=== PATIENT | female | born 1970 ===

== ENCOUNTER 2024-12-23 10:02 | Outpatient (AMB) | payer OTHER, SELFPAY ==
--- NOTE | 2024-12-23 10:05 | A.OFFPC_ITS ---
Vital Signs 12/23/24 10:14 Height 5 ft 3 in Weight 202 lb 2 oz BMI 35.8 BP 118/70 Blood Pressure Location Rt brachial Position Sitting Respiration 12 Pulse 76 Pulse Source Pulse Oximeter Temp 97.2 F Temp Source Oral Pulse Oximetry (%) 96 Oxygen Delivery Method Room Air Intake Visit Reasons: Est. 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: No Allergies No Known Allergies Allergy (Verified 12/23/24 10:39) Medication List - Last Reconciled 12/23/24 by MAURICIO Rdz No Known Home Meds Tobacco use date assessed: 12/23/24 Dental Screening Dental Screen Date: 12/23/24 Did you have a dental visit in the last 12 months?: No Did you have a dental problem in the last 6 months where you did not have access to dental care?: No Was dental information given to patient?: Patient has dentist HPI HPI Comments History of Present Illness Details 54 y/o Bruneian F, Bermudian speaking, w ith MDD, ILEANA, HLD, HTN, Health Maintenance: Colon referred today Mammo ordered today DEXA orderd today PAP referred today Tdap admin today Specialists: History of Present Illness - The patient is a 54-year-old female pr esenting with the need to establish care & for CPE - Relocated from [facility] no r ecords. Dtr here and helps w/language barrier - History includes anxiety, depression, hypertension, hyperlipidemia, and asthma. - Previously on aspirin for cardiac heal th, per reports - Reports bilateral knee pain, right mor e than left, causing walking difficulty, assoc w swelling - BMI >35 interested in bariatrics - Attempting dietary and exercise interv entions with limited success. - Will be starting [employer], needs tda p and titers. - Asthma controlled w/o meds - BP controlled w/o meds - Hairloss of scalp - Bilat ear pain and sore throat started a few days ago. - Right hand pain and swelling, comes an d goes Review of Systems - Musculoskeletal: Reports knee pain and difficulty walking, right knee more affected. - Endocrine: Reports previous evaluation of thyroid function. - Nutritional/Weight: Reports obesity co ncerns, BMI > 35. - Psychiatric: Positive history of anxie ty and depression; interest in mental health counseling. Physical Exam General: Well developed, well nourished, in no acute distress. Appears stated age. Head: Normocephalic, atraumatic. Eyes: Pupils are equal, round and reactive to light and accommodation. Conjunctivae are clear. Vision grossly normal. Ears: TMs clear AU, EACS WNL. Mild congestion bilat TM Nose: scant clear drainage turbinates pale and edematous, no sinus TTP Pharynx: Mild PND Neck: Supple, no adenopathy or thyromegaly. Breast: Edu on SBE Lungs: Clear to auscultation bilaterally. No rales, rhonchi or wheeze noted. Good air flow in all camacho. Heart: Regular rate and rhythm. No murmurs, click, rubs or gallops are noted. Abdomen: Bowel sounds present in all quadrants. The abdomen is soft, nontender, with no masses or organomegaly noted. No hernias are noted. : Deferred. Reviewed recommendations for routine PILATES COORDINATOR Pulses: Peripheral pulses are equal and palpable bilaterally. Extremities: No clubbing, cyanosis nor edema is noted. LROM R knee d/t pain, + crepitus bilat, antalgic gait favoring R knee. No redness or warmth to joint. R hand normal today. Neurologic: Gait and station normal. Cranial Nerves 2-12 intact. Motor strength grossly symmetrical and intact. No sensory loss. Balance normal. Skin: No rashes, ulcers, or lesions noted. Turgor is good. Skin color is good. Hair and nails are without abnormalities. Alopecia of scalp. Psych: Normal eye contact, affect and mood appropriate, and normal interactions. Results Pending Discussion Notes Discussed at length the patient?s multiple medical issues, including anxiety, depression, hypertension, hyperlipidemia, asthma, and obesity. I explained the importance of routine health maintenance, including annual mammograms and blood work assessment. We discussed referrals to orthopedics for knee pain and dermatology for concerns about hair loss. Reviewed the necessity of vaccinations, particularly the tetanus immunization, and explained the procedure of applying titers for various conditions. Addressed weight management concerns and possible referral to a weight management clinic. Informed the patient about the possibility of establishing a plan for mental health support with a counselor. Stressed the importance of follow-up visits and provided guidance on how to enroll in our patient portal for further communication and record- keeping. Patient was given time to ask questions. All questions were answered to their satisfaction. Assessment and Plan 1. Generalized Anxiety Disorder and Catarina r Depressive Disorder - Referral for counseling services. 2. Essential Hypertension - Monitor 3. Hyperlipidemia - Evaluate lipid panel results. 4. Asthma - Assess medication needs. 5. Obesity - Referral to weight management clinic. 6. Knee Pain, bilat - Orthopedics referral. 7. Preventive Health - Tetanus shot administered and discusse d screenings. HM referrals/orders placed today. Mulitlple referrals placed today per request. Has [employer] health form, asked this be sent via the portal for me to complete once labs are back. Patient Instructions - Please make sure to get your tetanus s hot today. - Follow up with the orthopedic speciali st for your knee pain. - Contact a counselor for mental health support as discussed. - Remember to get your routine lab work done today. - Maintain your exercise and dietary eff orts; we'll support your weight management journey. - Enroll in our patient portal to stay u pdated on your health information. - RTO 1 year CPE , sooner PRN Consent Patient was informed and verbally consented to the use of an ambient scribe for clinic note documentation during this visit. An additional 50 minutes was spent addressing the problem(s) noted at todays visit. This includes time spent before the visit reviewing the chart, time spent during the visit, and time spent after the visit on documentation reviewing laboratory results, diagnostic imaging, medications, performing a medically necessary evaluation, counseling on diagnoses, care coordination, ordering appropriate tests, ordering appropriate medications, review of tests performed by other providers, reporting test results with the patient, communication with other healthcare providers. [facility] Medical History (Updated 12/23/24 @ 11:09 by Milagros Bazzi, [facility]) Allergic Anxiety and depression Arthritis Asthma Edema Headache High cholesterol HTN (hypertension) Hx of mammogram (~2022) IBS (irritable bowel syndrome) Memory loss No pertinent family history Sinusitis Swelling Thyroid disorder Surgical History (Updated 12/23/24 @ 10:21 by Miguelito Silva MA) No pertinent past surgical history Social History (Updated 12/23/24 @ 10:18 by Miguelito Silva MA) Household Members: Children Both parents involved: No Caregiver staying overnight: No Housing: House Are you a primary career resource specialist to a significant other at home: No Do you presently have visiting nurse or other home services: No 75 years or older and lives alone: No Alcohol intake: current Alcohol intake frequency: a few times a month Patient Tobacco Use Status: Never used Tobacco e-Cigarette/Vaping Use: Never Used Second Hand Smoke Exposure: No Current occupational status: unemployed Cognitive needs: Yes Hearing needs: No Vision needs: Yes Questionnaire PHQ-9 Over the last 2 weeks, how often have you been bothered by any of the following problems? 1. Little interest or pleasure in doing things: several days 2. Feeling down, depressed, or hopeless: several days 3. Trouble falling or staying asleep, or sleeping too much: more than half the days 4. Feeling tired or having little energy: more than half the days 5. Poor appetite or overeating: nearly every day 6. Feeling bad about yourself - or that you are a failure or have let yourself or your family down: more than half the days 7. Trouble concentrating on things, such as reading the newspaper or watching television: more than half the days 8. Moving or speaking so slowly that other people could have noticed. Or the opposite - being so fidgety or restless that you have been moving around a lot more than usual: more than half the days 9. Thoughts that you would be better off or of hurting yourself in some way: not at all Total score: 15 Depression Screening Interpretation: Positive Depression Screening Follow-up: Existing condition and Community Mental Health Worker F/U Depression Screening Done: Yes 69089 - PHQ-9 Billing: Yes Source: Developed by Drs. Yordan Salguero, Layla Haskins, Jose Luis Kapadia and colleagues, with an educational amara from [employer]. Thrive Questionnaire Date Thrive assessed: 12/23/24 I am a: Patient What is your living situation today?: I choose not to answer this question Within the past 12 months, did the food you bought not last and you didn't have the money to get more?: I choose not to answer this question Within the past 12 months, did you worry whether your food would run out before you got money to buy more?: I choose not to answer this question Do you have trouble paying for medicines?: Yes Do you have trouble getting transportation to medical appointments?: Yes Do you have trouble paying your heating and electricity bill?: I choose not to answer this question Do you have trouble taking care of your child, family member or friend?: I choose not to answer this question Do you have trouble with day-to-day activities such as bathing, preparing meals, shopping, managing finances, etc.?: I choose not to answer this question Are you currently unemployed and looking for a job?: Yes Are you interested in more education?: I choose not to answer this question Currently or been in a relationship where the following occur: I choose not to answer THRIVE Score: 1 AUDIT C Alcohol Use Questionnaire (AUDIT-C) 1. How often do you have a drink containing alcohol?: Monthly or less 2. How many drinks containing alcohol do you have on a typical day when you are drinking?: 1 or 2 3. How often do you have six or more drinks on one occasion?: Never Total Score: 1 Score Reviewed/Action Taken: Yes ILEANA-7 AMB Questionnaire ILEANA-7 Date ILEANA - 7 assessed: 12/23/24 Feeling nervous, anxious, or on edge: 0 = Not at all Not being able to stop or control worryin = Not at all Worrying too much about different things: 0 = Not at all Trouble relaxin = Not at all Being so restless that it is hard to sit still: 0 = Not at all Becoming easily annoyed or irritable: 0 = Not at all Feeling afraid as if something awful might happen: 0 = Not at all Total ILEANA-7 score (0-4 normal; 5-9 mild; 10-14 moderate; 15-21 severe): 0 Source: Developed by Drs. Yordan Salguero, Layla Haskins, Jose Luis Kapadia and colleagues, with an educational amara from [employer]. ILEANA-7 Assessment Billing ILEANA-7 Assessment Tool: ILEANA-7 Assessment 44044 ACT Questionnaire In the past 4 weeks, how much of the time did your asthma keep you from getting as much done at work, school or at home?: None of the time During the past 4 weeks, how often have you had shortness of breath?: Not at all During the past 4 weeks, how often did your asthma symptoms wake you up at night or earlier than usual in the morning?: Not at all During the past 4 weeks, how often have you had to use your rescue inhaler or nebulizer medication?: Not at all How would you rate your asthma control during the past 4 weeks?: Completely controlled ACT Interpretation: Negative Score: 25 Physical exam (Primary Care) Vital Signs: Last Vital Signs Temp 97.2 F 12/23/24 10:14 Pulse 76 12/23/24 10:14 Resp 12 12/23/24 10:14 BP 118/70 12/23/24 10:14 Pulse Ox 96 12/23/24 10:14 Oxygen Delivery Method Room Air 12/23/24 10:14 BMI result Body Mass Index 35.8 BMI Assessment/Plan discussion: High BMI High, discussed plan: lifestyle Tobacco/Smoking Status: Tobacco use Status Tobacco use date assessed 12/23/24 12/23/24 10:09 Patient Tobacco Use Status Never used Tobacco 12/23/24 10:18 e-Cigarette/Vaping Use Never Used 12/23/24 10:18 PHQ-9: PHQ-9 Score PHQ-9: Total score 15 12/23/24 10:39 Depression Screening Interpretation: Positive Depression Screening Follow-up: Existing condition and Community Mental Health Worker F/U Thrive Assessment: Date of Thrive Assessment Date Thrive assessed 12/23/24 12/23/24 10:09 Currently or been in a relationship where the following occur: I choose not to answer Immunizations Boostrix Tdap 2.5 Lf unit-8 mcg-5 Lf/0.5 mL intramuscular syringe Performing Provider: GIFTY Rdz Performing Location: [facility] Administered by: Miguelito Silva MA on 12/23/24 11:07 Dose Route Admin Location Dispensed Lot Number Expiration Date [facility] Medical Coding Auditor 0.5 mL IM Right Deltoid 0.5 mL [id number] 07/11/26 [id number] [employer] Total Dispensed Waste 0.5 mL 0 % VIS Given Date VIS Provided VIS Publication Date 12/23/24 Single Vaccine 20 Eligibility Eligibility Date Funding Source Not [facility] Eligible 12/23/24 Private Coding Level of Care Code New Pt Level 5 (28080) New Pt Prev Care 40-64y(92478) Diagnoses Encounter to establish care with new provider Z76.89 Obesity (BMI 30-39.9) E66.9 Mild episode of recurrent major depressive disorder F33.0 Major depression episode severity: mild ILEANA (generalized anxiety disorder) F41.1 Pain and swelling of knee, unspecified laterality M25.569; M25.469 Laterality: unspecified laterality Menopause Z78.0 Blurry vision, bilateral H53.8 Immunity status testing Z01.84 Need for Tdap vaccination Z23 Intermittent pain and swelling of hand M79.643; M79.89 Alopecia L65.9 Environmental allergies Z91.09 Primary hypertension I10 Hypertension type: primary hypertension High cholesterol E78.00 Laboratory exam ordered as part of routine general medical examination Z00.00 Mild intermittent asthma without complication J45.20 Asthma severity: mild Asthma persistence: intermittent Asthma complication type: uncomplicated Encounter for general adult medical examination without abnormal findings Z00.00 Additional Codes ILEANA-7 Assessment Billing - ILEANA-7 Assessment Tool: ILEANA-7 Assessment 91243 ([id number]) PHQ-9 - 05073 - PHQ-9 Billing: Yes ([id number]) Asthma Control Questionnaire - ACT Interpretation: Negative ([id number]) Assessment & Plan Assessment & Plan (1) Encounter to establish care with new provider: Code(s): Z76.89 - Persons encountering health services in other specified circumstances (2) Obesity (BMI 30-39.9): Comment: [facility]MT REFERRAL Code(s): E66.9 - Obesity, unspecified Category: Medical (3) MDD (major depressive disorder), recurrent episode: Comment: [facility] REFERRAL FOR COUNSELING Code(s): F33.9 - Major depressive disorder, recurrent, unspecified Category: Medical Qualifiers: Major depression episode severity: mild Qualified Code(s): F33.0 - Major depressive disorder, recurrent, mild (4) ILEANA (generalized anxiety disorder): Code(s): F41.1 - Generalized anxiety disorder Category: Medical (5) Pain and swelling of knee: Comment: BILAT [facility] RFERRAL Code(s): M25.569 - Pain in unspecified knee; M25.469 - Effusion, unspecified knee Category: Medical Qualifiers: Laterality: unspecified laterality Qualified Code(s): M25.569 - Pain in unspecified knee; M25.469 - Effusion, unspecified knee (6) Menopause: Comment: DEXA ORDERED Code(s): Z78.0 - Asymptomatic menopausal state Category: Medical (7) Blurry vision, bilateral: Comment: [facility] RE[facility] Code(s): H53.8 - Other visual disturbances Category: Medical (8) Immunity status testing: Code(s): Z01.84 - Encounter for antibody response examination Category: Medical (9) Need for Tdap vaccination: Code(s): Z23 - Encounter for immunization Category: Medical (10) Intermittent pain and swelling of hand: Comment: RIGHT HAND [facility] HAND REFERRAL Code(s): M79.643 - Pain in unspecified hand; M79.89 - Other specified soft tissue disorders Category: Medical (11) Alopecia: Comment: DERM REFERRAL Code(s): L65.9 - Nonscarring hair loss, unspecified Category: Medical (12) Environmental allergies: Comment: SIRENA SMITH Code(s): Z91.09 - Other allergy status, other than to drugs and biological substances Category: Medical (13) HTN (hypertension): Code(s): I10 - Essential (primary) hypertension Category: Medical Qualifiers: Hypertension type: primary hypertension Qualified Code(s): I10 - Essential (primary) hypertension (14) High cholesterol: Code(s): E78.00 - Pure hypercholesterolemia, unspecified Category: Medical (15) Laboratory exam ordered as part of routine general medical examination: Code(s): Z00.00 - Encounter for general adult medical examination without abnormal findings Category: Medical (16) Asthma: Code(s): J45.909 - Unspecified asthma, uncomplicated Category: Medical Qualifiers: Asthma severity: mild Asthma persistence: intermittent Asthma complication type: uncomplicated Qualified Code(s): J45.20 - Mild intermittent asthma, uncomplicated (17) Encounter for general adult medical examination without abnormal findings: Onset Date: ~12/23/24 Code(s): Z00.00 - Encounter for general adult medical examination without abnormal findings Category: Medical Plan . Orders: Orders Comprehensive Met. Panel Today Z00.00 - Encounter for general adult medical examination without abnormal findings Complete Blood Count no Diff Today Z00.00 - Encounter for general adult medical examination without abnormal findings Hemoglobin A1c Today Z00.00 - Encounter for general adult medical examination without abnormal findings TSH reflex Free T4 Today Z00.00 - Encounter for general adult medical examination without abnormal findings Vitamin B12 and Folate Today Z00.00 - Encounter for general adult medical examination without abnormal findings Hepatitis B Surface Antibody Today Z01.84 - Encounter for antibody response examination T Spot TB Today Z01.84 - Encounter for antibody response examination, Z11.1 - Encounter for screening for respiratory tuberculosis MMR IgG Measles Mumps Rubella Today Z01.84 - Encounter for antibody response examination Varicella IgG Antibody Today Z01.84 - Encounter for antibody response examination Lipid Panel Today Z00.00 - Encounter for general adult medical examination without abnormal findings Microalbumin, Random (w Creat) Today Z00.00 - Encounter for general adult medical examination without abnormal findings Vitamin D 25-OH Total Today Z00.00 - Encounter for general adult medical examination without abnormal findings MM tomosynthesis screening BI Today Z12.31 - Encounter for screening mammogram for malignant neoplasm of breast XR DEXA axial skeleton Today Z13.820 - Encounter for screening for osteoporosis, Z78.0 - Asymptomatic menopausal state TDaP Immunization Today Z23 - Encounter for immunization Referrals WARD SUPERVISOR Referral Z12.4 - Encounter for screening for malignant neoplasm of cervix Hand Surgery Referral M79.643 - Pain in unspecified hand, M79.89 - Other specified soft tissue disorders Orthopedics Referral M25.469 - Effusion, unspecified knee, M25.569 - Pain in unspecified knee Gastroenterology Referral Z12.11 - Encounter for screening for malignant neoplasm of colon Ophthalmology Referral H53.8 - Other visual disturbances Medical Weight Management Referral E66.9 - Obesity, unspecified Nurse Navigator Referral F41.1 - Generalized anxiety disorder Dermatology Referral L65.9 - Nonscarring hair loss, unspecified Medications: New cetirizine (Zyrtec) 10 mg PO DAILY PRN 90 caps 2RF allergy symptoms fluticasone propionate 50 mcg/actuation administer into each nostril 1 spray intranasal BID 16 grams 12RF Patient Instructions: Walk-In Care (Urgent Care): We Make it Easy Walk-in for urgent medical issues such as: ? Seasonal Allergies ? Insect Bites ? Cough ? Diarrhea ? Acute Asthma Attacks ? Back, Knee or Joint Pain ? Ear Infection ? Fever without a Rash ? Headaches ? Nausea ? [place] [facility], Rash or Skin Irritation ? Sore Throat ? Sports Physicals ? Vomiting Most insurances are accepted. Patients do not need to be part of the [facility] to seek care at the walk-in clinic. Locations [address], [place] [address] ? [phone] [facility] in [place] provides services to ages 18 and over. Open Sunday-Sunday: 8 a.m. to 5 p.m. and Sunday: 9 a.m. to 3 p.m.* *Hours may vary due to staffing availability. To confirm Walk-In Care hours in [place], please call [phone]. [address] [place] [address] ? [phone] [facility] in [place] provides services to ages 12 and over. Open Sunday-Sunday: 8 a.m. to 5 p.m. Hours may vary due to staffing availability. To confirm Walk-In Care hours in [place], please call [phone]. LABORATORY SERVICES: [facility] ? Primary Location [address] [place] [address] Sunday through Sunday 6:00 AM ? 5:00 PM Sunday 7:00 AM ? 11:00 AM* [phone] The [facility] is centrally located near the front entrance of the [facility] for easy outpatient access. Convenient parking is provided for outpatients. *Hours may vary due to staffing availability. To confirm Laboratory hours for any location, please call [phone]. Offsite Location For your convenience, we offer offsite laboratory draw stations at the following locations: [address] [place] [address] ? [address], [address] Sunday through Sunday 7:30 AM ? 1:00 PM* [phone] *Hours may vary due to staffing availability. To confirm Laboratory hours for any location, please call [phone]. [place] ? [address] Sunday through Sunday 6:00 AM ? 3:30 PM* Sunday 6:30 AM ? 3 PM* [phone] *Hours may vary due to staffing availability. To confirm Laboratory hours for any location, please call [phone] [place] [address] Sunday through Sunday 7:30 AM ? 4:00 PM* [phone] *Hours may vary due to staffing availability. To confirm Laboratory hours for any location, please call [phone]. [facility] Sunday through 9:00 AM ? 4:00 PM* *Hours may vary due to staffing availability. To confirm Laboratory hours for any location, please call [phone]. Appointments are not necessary. Walk-ins are welcome. Like all the departments throughout the [facility], our Lab undergoes frequent reviews to ensure the quality and accuracy of test results, and our staff takes special pride in its status as a nationally accredited facility. Patient Portal: ONE PATIENT. ONE RECORD. BETTER CARE. [facility] has a fully integrated, cutting- edge mobile electronic health information system that has revolutionized the way we care for our patients and manage our organization. This system improves communication and coordination enabling us to provide safe, higher-quality care, and an overall positive experience for staff and patients. Our first priority, as always, is to deliver the highest quality care possible. The system is running in the background supporting that priority. This portal is for all [facility] services and practices. If you are experiencing any technical difficulties with enrolling or logging into the Patient Portal please complete the [facility] Patient Portal Technical Support Form. [facility] now offers a new secure on-line interactive tool for patients to review their health information ? ?Patient Portal. This interactive web portal will enable patients and their families to take an active role in their care by providing easy, secure access to their health information via the internet. The Patient Portal provides patients with instant access to their health information, including laboratory results, medications, allergies, demographic information, visit history, and more. In addition to managing their own care, parents and health care proxies with authorized consent will appreciate the ability to access the records of those individuals for whom they provide care. Please note: if you wish to gain access (Proxy) to another patient?s portal, you will be required to come to the Medical Records Department in person at [facility]. Both the patient giving proxy access and the proxy will need to provide photo identification and complete the appropriate authorization. The Patient Portal also allows track their appointments online. The [facility] Patient Portal also saves patients time by allowing them to submit updates to their demographic and contact information prior to their visits. Portal email notifications will also alert patients to any new activity on their portal, such as test results and new appointments. In order to initially enroll in the [facility] Patient Portal, you will need to enter some required information including the following: * your [facility] Medical Record number * your personal home email address * name * date of Please note: In order to enroll in the [facility] Patient Portal, we need to have your email address on file in your electronic medical record. ?The email address needs to be specific for one person (yourself) in order for your Portal enrol lment to be successful. ?You can update your email address in person with our Registration staff when you are registering for a hospital visit. ?Otherwise, you will need to come to the Health Information Management (Medical Records) Department at [facility]. ?We are open from Sunday ? Sunday from 7:30 a.m. ? 4:30 p.m. ?You will be required to present a photo id. Once you have successfully enrolled in the Patient Portal, you will receive a one-time user id and password for the Portal, sent to your email address. ?This will allow you to log into the Patient Portal within 99 hrs and reset your own logon id and password, and define personal security questions. ?Once your permanent login and password have been set, you can log into the [facility] Patient Portal at any time via the blue button above or from the Portal Logon button on any page of the [facility] website. [facility] and [facility] encourage all of our patients to enroll in Patient Portal as it presents a valuable opportunity for patients and their families to actively participate in their care and stay healthy Welcome to [facility]. ?We look forward to working with you. Health screenings for women You should visit your health care provider from time to time, even if you are healthy. The purpose of these visits is to: Screen for medical issues Assess your risk for future medical problems Encourage a healthy lifestyle Update vaccinations and other preventive care services Help you get to know your provider in case of an illness Information Even if you feel fine, you should still see your provider for regular checkups. These visits can help you avoid problems in the future. For example, the only way to find out if you have high blood pressure is to have it checked regularly. High blood sugar and high cholesterol levels also may not have any symptoms in the early stages. A simple blood test can check for these conditions. There are specific times when you should see your provider or receive specific health screenings. The [place] Preventive Services Task Force publishes a list of recommended screenings. Below are screening guidelines for women ages 18 to 39. BLOOD PRESSURE SCREENING Your blood pressure should be checked at least once every 3 to 5 years if: Your blood pressure is in the normal range (top number less than 120 mm Hg and b ottom number less than 80 mm Hg) You don't have risk factors for high blood pressure Ask your provider if you need your blood pressure checked more often if: The top number is 120 to 129 mm Hg or the bottom number is 70 to 79 mm Hg You have diabetes, heart disease, kidney problems, are overweight, or have certain other health conditions You have a first-degree relative with high blood pressure You are Black You had high blood pressure during a If the top number is 130 mm Hg or greater or the bottom number is 80 mm Hg or greater, this is considered stage 1 hypertension. Schedule an appointment with your provider to learn how you can reduce your blood pressure. Watch for blood pressure screenings in your area. Ask your provider if you can stop in to have your blood pressure checked. BREAST CANCER SCREENING Experts do not agree about the benefits of breast self-exams in finding breast cancer or saving lives. Talk to your provider about what is best for you. A screening mammogram is not recommended for most women under age 40. Your provider may discuss and recommend mammograms, MRI scans, or ultrasounds if you have an increased risk for breast cancer, such as: A mother or sister who had breast cancer at a young age (most often starting screening earlier than the age the close relative was diagnosed) You carry a high-risk genetic marker CERVICAL CANCER SCREENING Cervical cancer screening should start at age 21 years unless your provider advises otherwise. After the first test: Women ages 21 through 29 should have a Pap test every 3 years. Exoprts do not agree on whether HPV testing is recommended for this age group. Women ages 30 through 65 should be screened with either a Pap test every 3 years or the HPV test every 5 years or both tests every 5 years (called cotesting ). Women who have been treated for precancer (cervical dysplasia) should continue to have Pap tests for 20 years after treatment or until age 65, whichever is longer. If you have had your uterus and cervix removed (total hysterectomy), and you have not been diagnosed with cervical cancer or precancer (high grade cervical neoplasia), you do not need cervical cancer screening. CHOLESTEROL SCREENING Cholesterol screening should begin at: Age 45 for women with no known risk factors for coronary heart disease Age 20 for women with known risk factors for coronary heart disease Repeat cholesterol screening should take place: Every 5 years for women with normal cholesterol levels More often if changes occur in lifestyle (including weight gain and diet) More often if you have diabetes, heart disease, kidney problems, or certain other conditions DIABETES SCREENING You should be screened for diabetes starting at age 35 and then repeated every 3 years if you have no risk factors for diabetes. Screening may need to start earlier and be repeated more often if you have other risk factors for diabetes, such as: You have a first degree relative with diabetes. You are overweight or have obesity. You have high blood pressure, prediabetes, or a history of heart disease. Screening for diabetes should be done if you are planning to become and you are overweight and have other risk factors such as high blood pressure. DENTAL EXAM Go to the dentist once or twice every year for an exam and cleaning. Your dentist will evaluate if you need more frequent visits. EYE EXAM Have an eye exam every 5 to 10 years before age 40. If you have vision problems, have an eye exam every 2 years or more often if recommended by your provider. You should have an eye exam that includes an examination of your retina (back of your eye) at least every year if you have diabetes. IMMUNIZATIONS Commonly needed vaccines include: Flu shot: get one every year. COVID-19 vaccine: ask your provider what is best for you. Tetanus-diphtheria and acellular pertussis (Tdap) vaccine: have one at or after age 19 as one of your tetanus-diphtheria vaccines if you did not receive it as an adolescent. Tetanus-diphtheria: have a booster (or Tdap) every 10 years. Varicella vaccine: receive 2 doses if you never had chickenpox or the varicella vaccine. Hepatitis B vaccine: receive 2, 3, or 4 doses, depending on your exact circumstances. Measles, mumps, and rubella (MMR) vaccine: receive 1 to 2 doses if you are not already immune to MMR. Your provider can tell you if you are immune. Ask your provider about the human papillomavirus (HPV) vaccine if: You have not received the HPV vaccine in the past You have not completed the full vaccine series (you should catch up on this shot) Ask your provider if you should receive other immunizations if you have certain health problems that increase your risk for some diseases such as pneumonia. INFECTIOUS DISEASE SCREENING Women who are sexually active should be screened for chlamydia and gonorrhea up until age 25. Women 25 years and older should be screened for chlamydia and gonorrhea if at high risk. Screening for hepatitis C: All adults ages 18 to 79 should get a one-time test for hepatitis C. people should be screened at every . Screening for human immunodeficiency virus (HIV): All people ages 15 to 65 should get a one-time test for HIV. Depending on your lifestyle and medical history, you may also need to be screened for infections such as syphilis and HIV, as well as other infections. PHYSICAL EXAM All adults should visit their provider from time to time, even if they are healthy. The purpose of these visits is to: Screen for disease Assess your risk of future medical problems Encourage a healthy lifestyle Update your vaccinations and other preventive care services Maintain a relationship with a provider in case of an illness Your height, weight, and BMI should be checked at every exam. During your exam, your provider may ask you about: Depression and anxiety Diet and exercise Alcohol and tobacco use Safety issues, such as using seat belts, smoke detectors, and intimate partner violence Your medicines and risk for interactions SKIN SELF-EXAM Your provider may check your skin for signs of skin cancer, especially if you're at high risk, such as if you: Have had skin cancer before Have close relatives with skin cancer Have a weakened immune system OTHER SCREENING Talk with your provider about colon cancer screening if you have a strong family history of colon cancer or polyps, or if you have had inflammatory bowel disease or polyps yourself. Routine bone density screening of women under 40 is not recommended.
[2024-12-23 10:14] VITALS: BP 118/70; PULSE 76; RESP 12; TEMP 36.2; O2SAT 96; BMI 35.8
== END 2024-12-23 11:06 | disposition home or self-care (01) ==
LOC: HO.HMCFM 10:03
PROVIDERS: PCP Nurse Practitioner Family; Visit Provider Nurse Practitioner Family
DX: Z00.00 Encounter for general adult medical examination without abnormal findings (principal); M25.561 Pain in right knee; H53.8 Other visual disturbances; F33.0 Major depressive disorder, recurrent, mild; F41.1 Generalized anxiety disorder; M79.641 Pain in right hand; M25.461 Effusion, right knee; M79.89 Other specified soft tissue disorders; L65.9 Nonscarring hair loss, unspecified; Z68.35 Body mass index [BMI] 35.0-35.9, adult; Z23 Encounter for immunization; J45.20 Mild intermittent asthma, uncomplicated

== ENCOUNTER → 2024-12-23 10:02 | Outpatient (BNVA) | payer OTHER, SELFPAY | PROVIDERS: PCP Nurse Practitioner Family; Visit Provider Nurse Practitioner Family | DX: Z00.00 Encounter for general adult medical examination without abnormal findings (principal); I12.9 Hypertensive chronic kidney disease with stage 1 through stage 4 chronic kidney disease, or unspecified chronic kidney disease; N18.31 Chronic kidney disease, stage 3a; F41.1 Generalized anxiety disorder; E66.9 Obesity, unspecified; M25.561 Pain in right knee; M25.562 Pain in left knee; F33.0 Major depressive disorder, recurrent, mild; M25.461 Effusion, right knee; M25.462 Effusion, left knee; H53.8 Other visual disturbances; M79.89 Other specified soft tissue disorders; L65.9 Nonscarring hair loss, unspecified; E78.00 Pure hypercholesterolemia, unspecified; J45.20 Mild intermittent asthma, uncomplicated; Z23 Encounter for immunization; Z76.89 Persons encountering health services in other specified circumstances; Z78.0 Asymptomatic menopausal state; Z91.09 Other allergy status, other than to drugs and biological substances; Z68.35 Body mass index [BMI] 35.0-35.9, adult | CPT/HCPCS: 90471; 90715; 96127; 96160; 99202; 99386 ==

== ENCOUNTER 2024-12-23 11:09 | Outpatient (REF) | payer OTHER, SELFPAY ==
[2024-12-23 14:29] LABS: Hematocrit 39.2 % (37.0-47.0); Hemoglobin 13.1 g/dl (12.0-16.0); Mean Corpuscular HGB Conc 33.4 g/dl (31.0-35.0); Mean Corpuscular Hemoglobin 30.8 pg (27.0-33.0); Mean Corpuscular Volume 92.2 fL (80.0-98.0); NRBC Abs Auto 0.000 X10*3/uL (0.0-0.012); NRBC Pct Auto 0.0 /100WBC (0.0-0.2); Platelet Count 365 X10*3/uL (160-400); Red Blood Count 4.25 X10*6/uL (4.20-5.50); White Blood Count 7.7 X10*3/uL (4.8-10.8)
[2024-12-23 14:48] LABS: Microalbum/Creatinine Ratio Ur 3.5 ug/mg cr (<30)
[2024-12-23 15:03] LABS: Alanine Aminotransferase 25 U/L (0-31); Albumin Level 4.2 g/dL (3.5-5.0); Alkaline Phosphatase 67 U/L (39-117); Anion Gap 9 (12-20); Aspartate Amino Transferase 54 U/L (5-31); Blood Urea Nitrogen 18 mg/dL (9-16); Calcium 9.1 mg/dL (8.4-10.2); Carbon Dioxide 27 mmol/L (22-29); Chloride 108 mmol/L (96-108); Cholesterol 246 mg/dL (<200); Estimated Glomerular Filt Rate 54; HDL Cholesterol 41 mg/dL (>40); Potassium 3.9 mmol/L (3.3-5.1); Sodium 140 mmol/L (135-145); Total Protein 8.0 g/dL (6.5-8.0); Triglycerides 188 mg/dL (<150)
[2024-12-23 15:05] LABS: Hemoglobin A1C 179.3188 umol/L; Total Hemoglobin (HGBA1C) 5586.5043 umol/L
[2024-12-23 15:19] LABS: Folate 8.8 ng/mL (> or = 4.0); Vitamin B12 368 pg/mL (200-900)
[2024-12-24 07:55] LABS: HBS Num1 355.31 mIU/mL (0-7.99); ~Hepatitis B Surface Antibody REACTIVE (Nonreactive)
[2024-12-24 09:08] LABS: Rubeola IgG (Measles) >300.00 AU/mL
[2024-12-26 07:03] LABS: TS Negative Control Passed; TS Panel A 3; TS Panel B 2; TS Positive Control Passed; TSpotTB Negative (Negative)
== END 2024-12-23 11:10 | disposition home or self-care (01) ==
LOC: HO.WFDLDS 11:09
PROVIDERS: Visit Provider Nurse Practitioner Family
DX: Z00.00 Encounter for general adult medical examination without abnormal findings (principal); Z11.1 Encounter for screening for respiratory tuberculosis; Z11.59 Encounter for screening for other viral diseases
CPT/HCPCS: 36415; 80053; 80061; 82043; 82306; 82570; 82607; 82746; 83036; 84443; 85027; 86481; 86706; 86735; 86762; 86765; 86787

== ENCOUNTER 2025-01-28 14:06 | Outpatient (AMB) | payer OTHER, SELFPAY ==
[2025-01-28 14:09] VITALS: BP 108/76; PULSE 78; RESP 14; TEMP 36.6; O2SAT 95; BMI 34.8
--- NOTE | 2025-01-28 14:09 | MHC.PC.OV ---
Vital Signs 01/28/25 14:09 Height 5 ft 3 in Weight 196 lb 8 oz BMI 34.8 BP 108/76 Blood Pressure Location Lt brachial Position Sitting Respiration 14 Pulse 78 Pulse Source Pulse Oximeter Temp 98 F Temp Source Oral Pulse Oximetry (%) 95 Oxygen Delivery Method Room Air Intake Visit Reasons: LT ringing in ear Intake Note: Right ringing in the ear. Alot of drainage, ear feels full. [employer] Required: No [employer] Maintenance Name: [employer] declined. Accompanied by: Daughter Allergies No Known Allergies Allergy (Verified 01/28/25 14:51) Medication List - Last Reconciled 01/28/25 by Milagros Bazzi, LESTER- aspirin (Adult Aspirin Regimen) 81 mg PO DAILY atorvastatin (Lipitor) 40 mg PO BEDTIME cetirizine (Zyrtec) 10 mg PO DAILY PRN fluticasone propionate 50 mcg/actuation 1 spray intranasal BID Tobacco use date assessed: 01/28/25 Dental Screening Dental Screen Date: 12/23/24 HPI HPI Comments History of Present Illness Details 54 y/o Burmese F, Greenlandic speaking, with MDD, ILEANA, HLD, HTN, asthma, obesity, CKD, alopecia, seasonal allergies Social: has a dtr, in [employer] school Health Maintenance: Colon referred Mammo ordered DEXA orderd PAP referred Tdap 2024 Specialists: counseling bariatrics ortho/Hand GI Optho Derm [employer] History of Present Illness, Dtr helps w/ language barrier, per pt request. - The patient is a 54-year-old female presenting with concerns related to right ear pain and associated symptoms. - Right ear pain onset 20 days ago. - Associated ear ringing noted. - Right ear painful upon palpation and feels warm. - Left ear w/ similar sx but not as bad. - Denies fever, chills, sore throat, nasal congestion, cough. - She was prescribed flonase and zyrtec @ last visit but she didnt start/pick them up as she didnt know she needed them. - Would like Rx for ibuprofen to use for pain HLD - Statin sent along w/ ASA but she didnt pick them up. Advised to do so today. Review of Systems - Ears: Reports right ear pain, ringing, and foul smell indicative of mucus. - Nose: Reports no sinus congestion. Physical Exam General: Well developed, well nourished, in no acute distress. Appears stated age. Head: Normocephalic, atraumatic. Eyes: Pupils are equal, round and reactive to light and accommodation. Conjunctivae are clear. Ears: EAC clear bilat, TM intact w/ effusions R>L. No mastoid pain or assoc. adenopathy. No drainage. Nose: Nares/turbinates WNL. No sinus TTP Discussion Notes I discussed the patient's current condition, noting that the symptoms and presentation are indicative of ETD. We reviewed the management plan, which includes prescribing a nasal spray to help reduce ear pressure and medication to be taken with food once a day for five days. It was stressed that the nasal spray could be used daily and discontinued upon symptom resolution. I confirmed that the patient is already using aspirin, prescribed for one year previously, and advised against the concurrent use of ibuprofen and prednisone. We addressed her concerns regarding cholesterol monitoring, emphasizing the necessity of an annual blood test. The patient consented to the treatment plan, including following up on medications at [facility] in [facility]. Patient was given time to ask questions. All questions were answered to their satisfaction. Assessment and Plan 1. ETD bilat - Prescribe nasal spray daily for ear decompression;predisone with food once daily for five days. 2. Hypercholesterolemia - Start statin and ASA; Annual blood test advised. 3. Allergic Rhinitis - Flonase nasal spray as prescribed. 4. Aspirin Therapy for Cardiovascular Prevention - Continue as previously prescribed for one year. Ibu 600 sent as requested. Patient Instructions - Use nasal spray daily to help with ear pressure, stop when symptoms improve. - Take the prescribed medication once daily with food for five days. - Avoid using ibuprofen while on this medication. - Continue using Flonase as previously directed. 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 - Yearly blood test for cholesterol monitoring is necessary. - Aspirin therapy should be continued as advised for cardiovascular health. - RTO as scheduled, sooner as needed. Consent Patient was informed and verbally consented to the use of an ambient scribe for clinic note documentation during this visit. Total time spent caring for the patient today was 30 minutes. This includes time spent before the visit reviewing the chart, time spent during the visit, and time spent after the visit on documentation, reviewing laboratory results, diagnostic imaging, medications, performing a medically necessary evaluation, counseling on diagnoses, care coordination, ordering appropriate tests, ordering appropriate medications, review of tests performed by other providers, reporting test results with the patient, communication with other healthcare providers. [facility] Medical History (Updated 12/25/24 @ 10:03 by Milagros Bazzi [facility]) Allergic Anxiety and depression Arthritis Asthma Edema Headache High cholesterol HTN (hypertension) Hx of mammogram (~2022) IBS (irritable bowel syndrome) Memory loss No pertinent family history Sinusitis Swelling Thyroid disorder Surgical History (Updated 12/23/24 @ 10:21 by Miguelito Silva MA) No pertinent past surgical history Social History (Updated 12/23/24 @ 10:18 by Miguelito Silva MA) Household Members: Children Both parents involved: No Caregiver staying overnight: No Housing: House Are you a primary personal caregiver to a significant other at home: No Do you presently have visiting nurse or other home services: No 75 years or older and lives alone: No Alcohol intake: current Alcohol intake frequency: a few times a month Patient Tobacco Use Status: Never used Tobacco e-Cigarette/Vaping Use: Never Used Second Hand Smoke Exposure: No Current occupational status: unemployed Cognitive needs: Yes Hearing needs: No Vision needs: Yes Questionnaire Thrive Questionnaire Date Thrive assessed: 12/17/24 I am a: Patient What is your living situation today?: I choose not to answer this question Within the past 12 months, did the food you bought not last and you didn't have the money to get more?: I choose not to answer this question Within the past 12 months, did you worry whether your food would run out before you got money to buy more?: I choose not to answer this question Do you have trouble paying for medicines?: Yes Do you have trouble getting transportation to medical appointments?: Yes Do you have trouble paying your heating and electricity bill?: I choose not to answer this question Do you have trouble taking care of your child, family member or friend?: I choose not to answer this question Do you have trouble with day-to-day activities such as bathing, preparing meals, shopping, managing finances, etc.?: I choose not to answer this question Are you currently unemployed and looking for a job?: Yes Are you interested in more education?: I choose not to answer this question Currently or been in a relationship where the following occur: I choose not to answer THRIVE Score: 1 ILEANA-7 AMB Questionnaire ILEANA-7 Date ILEANA - 7 assessed: 12/23/24 Source: Developed by Drs. Yordan Salguero, Layla Haskins, Jose Luis Kapadia and colleagues, with an educational amara from [employer]. Physical exam (Primary Care) Vital Signs: Last Vital Signs Temp 98 F 01/28/25 14:09 Pulse 78 01/28/25 14:09 Resp 14 01/28/25 14:09 BP 108/76 01/28/25 14:09 Pulse Ox 95 01/28/25 14:09 Oxygen Delivery Method Room Air 01/28/25 14:09 BMI result Body Mass Index 34.8 Tobacco/Smoking Status: Tobacco use Status Tobacco use date assessed 01/28/25 01/28/25 14:17 Patient Tobacco Use Status Never used Tobacco 01/28/25 14:17 e-Cigarette/Vaping Use Never Used 01/28/25 14:17 Thrive Assessment: Date of Thrive Assessment Date Thrive assessed 12/17/24 01/28/25 14:17 Currently or been in a relationship where the following occur: I choose not to answer Coding Level of Care Code Est Pt Level 4 (17928) Complex EM visit Add On G2211 Diagnoses Dysfunction of both eustachian tubes H69.93 Laterality: bilateral Environmental allergies Z91.09 High cholesterol E78.00 Assessment & Plan Assessment & Plan (1) Eustachian tube dysfunction: Code(s): H69.90 - Unspecified Eustachian tube disorder, unspecified ear Qualifiers: Laterality: bilateral Qualified Code(s): H69.93 - Unspecified Eustachian tube disorder, bilateral (2) Environmental allergies: Comment: ZYRTEC, FLONASE Code(s): Z91.09 - Other allergy status, other than to drugs and biological substances Category: Medical (3) High cholesterol: Code(s): E78.00 - Pure hypercholesterolemia, unspecified Category: Medical Plan . Medications: New prednisone 20 mg PO DAILY 5 tabs 0RF ibuprofen 600 mg PO Q8H PRN 21 tabs 3RF pain 7 days Refilled fluticasone propionate 50 mcg/actuation administer into each nostril 1 spray intranasal BID 16 grams 12RF
== END 2025-01-28 15:00 | disposition home or self-care (01) ==
LOC: HO.HMCFM 14:07
PROVIDERS: PCP Nurse Practitioner Family; Visit Provider Nurse Practitioner Family
DX: H69.93 Unspecified Eustachian tube disorder, bilateral (principal); Z91.09 Other allergy status, other than to drugs and biological substances; E78.00 Pure hypercholesterolemia, unspecified

== ENCOUNTER → 2025-01-28 14:06 | Outpatient (BNVA) | payer OTHER, SELFPAY | PROVIDERS: PCP Nurse Practitioner Family; Visit Provider Nurse Practitioner Family | DX: H92.01 Otalgia, right ear (principal); E78.00 Pure hypercholesterolemia, unspecified; J30.9 Allergic rhinitis, unspecified; H69.93 Unspecified Eustachian tube disorder, bilateral; Z91.09 Other allergy status, other than to drugs and biological substances; Z79.82 Long term (current) use of aspirin | CPT/HCPCS: 99212 ==

== ENCOUNTER 2025-03-06 08:26 | Outpatient (AMB) | payer OTHER, SELFPAY ==
--- NOTE | 2025-03-06 08:54 | MHC.OFFVIS ---
Intake Visit Reasons: New Pt - B/L knee pain Intake Note: Tosin is a 54 year old female who presents today as a new patient for a evaluation of her bilateral knee pain. No previous treatment. Patient reports ongoing pain for about 6 -7 year. She states that her right knee is worse wihch her pain starts from her hip down. Patient notices that her pain is on the later aspect of both knees. Her pain is worse when she is walking, sitting and standing. Patient has tried Tylenol,NSAIDs with mild relief. Patient is interested in injections. Allergies No Known Allergies Allergy (Verified 03/06/25 09:00) HPI HPI New Pt - B/L knee pain: Details: Ms. Radha phan is a 54-year-old female who presents to the office today with bilateral knee pain. Right knee is greater than left. Pain has been ongoing for the past 6-7 years. She denies any injury or trauma. She has not had any prior treatment. She has tried to taking OTC tylenol and NSAIDs with mild relief. [facility] Medical History (Updated 03/06/25 @ 09:12 by Nedra Kirk PA-C) No pertinent family history Anxiety and depression Memory loss Headache IBS (irritable bowel syndrome) Swelling Edema Arthritis Thyroid disorder High cholesterol HTN (hypertension) Allergic Sinusitis Asthma Hx of mammogram (~2022) Surgical History (Updated 12/23/24 @ 10:21 by Miguelito Silva MA) No pertinent past surgical history Social History Household Members: Children Housing: House Are you a primary housekeeper caregiver to a significant other at home: No Do you presently have visiting nurse or other home services: No Alcohol intake: current Alcohol intake frequency: a few times a month Patient Tobacco Use Status: Never used Tobacco e-Cigarette/Vaping Use: Never Used Second Hand Smoke Exposure: No Current occupational status: unemployed Cognitive needs: Yes Hearing needs: No Vision needs: Yes Review of Systems Const All systems reviewed & are unremarkable except as noted in HPI and below Physical Exam Const General: cooperative, healthy appearing and no acute distress Resp Effort & Inspection: normal respiratory effort and able to speak in complete sentences Extrem Other: Right/Left knee: Normal to inspection. No ecchymosis, erythema, or joint effusion. Tenderness to palpation along both the medial and lateral joint lines on the right knee. Full knee extension and flexion bilaterally. NVI. Psych Appearance: grossly normal Mental Status: mental status grossly normal Attitude: cooperative Office Procedures AMB Joint Injection/Aspiration Joint Injection/Aspiration Primary Site: right knee Secondary Site: left knee Prep: site was prepped using aseptic technique, ethochloride spray was applied and injection warnings given Injected: 40 mg of, with 3 mL of, 1% plain lidocaine, 0.25% bupivacaine, in the joint and decadron Approach Used: anterolateral Procedure: The patient tolerated the procedure well, but had some pain with the injection and there was some relief with the local anesthesia Coding - Bilateral Large Joint Procedure code (CPT) selection complete Assessment & Plan Assessment & Plan (1) Osteoarthritis of knees, bilateral: Code(s): M17.0 - Bilateral primary osteoarthritis of knee Category: Medical Plan The patient was offered a cortisone injection in bilateral knees. The patient was explained the risks, benefits, and alternatives to receiving this injection. After receiving consent for the injection, the patient had the procedure done while in the office today. The patient tolerated the procedure well with no complications. ] I also sent a prescripton for Diclofenac 75mg to be taken PO BID for pain and inflammation to the patient's pharmacy. Follow-up will be PRN, or sooner if needed X-rays of the bilateral knees which were obtained while in the office today and were reviewed by me, Nedra Kirk PA-C, revealed osteoarthritis right greater than left. Orders: Orders XR knee LT 2V Today M25.569 - Pain in unspecified knee XR knee RT 3V Today M25.569 - Pain in unspecified knee Medications: New diclofenac sodium 75 mg PO BID PRN 60 tabs 4RF pain 30 days Coding Level of Care Code New Pt Level 3 (70294) Diagnoses Osteoarthritis of knees, bilateral M17.0 CPT Codes Coding - - Bilateral Large Joint: 89915 - Bilateral Large Joint ([id number])
== END 2025-03-06 09:20 | disposition home or self-care (01) ==
LOC: HO.HOS 08:27
PROVIDERS: PCP Nurse Practitioner Family; Visit Provider Physician Assistant
DX: M17.0 Bilateral primary osteoarthritis of knee (principal)
CPT/HCPCS: 20610; 99203

== ENCOUNTER → 2025-03-06 08:29 | Outpatient (BNV) | payer OTHER, SELFPAY | PROVIDERS: Visit Provider Radiology Diagnostic Radiology | DX: M25.561 Pain in right knee (principal) | CPT/HCPCS: 73560; 73562 ==

== ENCOUNTER 2025-03-06 08:41 | Outpatient (REF) | payer OTHER, SELFPAY ==
--- NOTE | ~2025-03-06 | XR_ITS ---
EXAMINATION: XR KNEE, RIGHT CLINICAL INFORMATION: M25.569 - Pain in unspecified knee COMPARISON: None available. TECHNIQUE: AP in standing positions both knees. Lateral and sunrise views of the right knee. FINDINGS: Joint space narrowing and marginal osteophyte formation with sclerosis along the articular surface involving mostly the lateral and to a lesser extent medial compartment of the right knee. Asymmetric joint space narrowing involving mostly the lateral compartment right knee. No suprapatellar bursa joint effusion. No acute cortical disruption or malalignment. No lytic or blastic lesions. No subcutaneous emphysema. No gross soft tissue calcifications. XR/XR knee RT 3V IMPRESSION: Bicompartmental osteoarthrosis/osteoarthritis, moderate, right knee. Electronically signed by: Gibran Stack MD 03/06/2025 08:41 AM EDT
--- NOTE | ~2025-03-06 | XR_ITS ---
CLINICAL HISTORY: M25.569 - Pain in unspecified knee --- Additional Notes or Special Instructions: sunrise and lateral 2 view left knee Comparison: None provided Findings: Bones intact. No dislocations. No significant loss of joint space, osteophytes, or erosions. No joint effusion. No radiopaque foreign body. IMPRESSION: 1. No acute findings. This document has been electronically signed by: Adriel Hernandes MD on 03/08/2025 09:50:08
== END 2025-03-06 08:42 | disposition home or self-care (01) ==
LOC: HO.HOSX 08:41
PROVIDERS: Visit Provider Physician Assistant
DX: M17.0 Bilateral primary osteoarthritis of knee (principal)
CPT/HCPCS: 20610; 73560; 73562; 99202; J0665; J1100; J2003

== ENCOUNTER 2025-03-13 13:51 | Outpatient (AMB) | payer OTHER, SELFPAY ==
--- NOTE | 2025-03-13 13:59 | MHC.PC.OV ---
Vital Signs 03/13/25 14:05 Height 5 ft 3 in Weight 197 lb 4 oz BMI 34.9 BP 114/73 Blood Pressure Location Lt brachial Position Sitting Respiration 14 Pulse 78 Pulse Source Pulse Oximeter Temp 97.9 F Temp Source Oral Pulse Oximetry (%) 97 Oxygen Delivery Method Room Air Intake Visit Reasons: ear pain Intake Note: Bilateral ear pain. Requesting refill on ibuprofen 800mg, 600 mg not working. Refill on Aspirin 81. 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: No Grain Elevator Superintendent Name: interprteter declined Accompanied by: Daughter Allergies No Known Allergies Allergy (Verified 03/13/25 14:12) Medication List - Last Reconciled 03/13/25 by LESTER Rdz- aspirin (Adult Aspirin Regimen) 81 mg PO DAILY atorvastatin (Lipitor) 40 mg PO BEDTIME diclofenac sodium 75 mg PO BID PRN 30 days fluticasone propionate 50 mcg/actuation 1 spray intranasal BID ibuprofen 600 mg PO Q8H PRN 7 days Tobacco use date assessed: 01/28/25 Dental Screening Dental Screen Date: 12/23/24 HPI HPI Comments History of Present Illness Details 54 y/o Spanish F, Togolese speaking, with MDD, ILEANA, HLD, HTN, asthma, obesity, CKD, alopecia, seasonal allergies Social: has a dtr, in [employer] Health Maintenance: Colon referred Mammo ordered DEXA orderd PAP referred Tdap 2024 Specialists: counseling bariatrics ortho/Hand GI Optho Derm [employer] History of Present Illness The patient is a 54-year-old female presenting with L ear pain - Bilateral ear pain, worse on the left. - Prior prednisone initially effective, symptoms returned after two weeks. - Using Ibu 600 mg but requesting 800 mg for better relief. Memory Recall Concerns: - Notable forgetfulness, would like neurology referral. Would like Rx for compression socks. Review of Systems - Ears: Reports bilateral ear pain, congestion, decreased hearing, itchiness; denies fever. - Throat: Denies sore throat. - Neurological: Reports forgetfulness. - Gastrointestinal: Reports constipation and associated pain. Physical Exam General: Well developed, well nourished, in no acute distress. Appears stated age. Accompanied by dtrs and granddtr Head: Normocephalic, atraumatic. Eyes: Pupils are equal, round and reactive to light and accommodation. Conjunctivae are clear. Ears: TM intact w/ ckouding on R, L is clear. L EAC is erythemtous, tender and edematous. There is no drainage. No mastoid pain or assoc. adenopathy. No drainage. Nose: Nares/turbinates WNL. No sinus TTP Neuro: no deficits noted Discussion Notes I discussed with the patient the likely diagnosis of acute otitis externa, primarily on the left side, and the plan to administer a combination ear drop containing an antibiotic and steroid. The potential blockage during treatment and expected resolution of symptoms were explained. I emphasized monitoring for symptom persistence and advised contacting me if improvements are not observed. We reviewed potential memory issues, and I agreed to initiate a referral to neurology for further evaluation. I also addressed the patient's request for ibuprofen, confirming its prescription. Follow-up instructions and guidance on medication use were provided. Patient was given time to ask questions. All questions were answered to their satisfaction. Assessment and Plan 1. Acute Otitis Externa - Prescribe combination ear drops for one week. - Monitor for symptom resolution; follow-up if no improvement. - Ibu 800 mg sent 2. Memory Recall Concerns - Refer to neurology for evaluation. - Monitor cognitive symptoms. 3. Message sent to nurses to see if this is a covered benefit; they will f/u with her. Patient Instructions - Use ear drops in left ear three times daily for a week. - Monitor symptoms and call if no improvement. - Take ibuprofen as prescribed for pain. - Expect a call for neurology scheduling. - Follow up if memory issues continue or worsen. - RTO as scheduled or sooner as needed. Consent Patient was informed and verbally consented to the use of an ambient scribe for clinic note documentation during this visit. [facility] Medical History (Updated 03/13/25 @ 14:20 by Milagros Bazzi, [facility]) Allergic Anxiety and depression Arthritis Asthma Edema Headache High cholesterol HTN (hypertension) Hx of mammogram (~2022) IBS (irritable bowel syndrome) Memory loss No pertinent family history Sinusitis Swelling Thyroid disorder Surgical History (Updated 12/23/24 @ 10:21 by Miguelito Silva MA) No pertinent past surgical history Social History Household Members: Children Both parents involved: No Caregiver staying overnight: No Housing: House Are you a primary daycare manager to a significant other at home: No Do you presently have visiting nurse or other home services: No 75 years or older and lives alone: No Alcohol intake: current Alcohol intake frequency: a few times a month Patient Tobacco Use Status: Never used Tobacco e-Cigarette/Vaping Use: Never Used Second Hand Smoke Exposure: No Current occupational status: unemployed Cognitive needs: Yes Hearing needs: No Vision needs: Yes Questionnaire Thrive Questionnaire Date Thrive assessed: 12/17/24 I am a: Patient What is your living situation today?: I choose not to answer this question Within the past 12 months, did the food you bought not last and you didn't have the money to get more?: I choose not to answer this question Within the past 12 months, did you worry whether your food would run out before you got money to buy more?: I choose not to answer this question Do you have trouble paying for medicines?: Yes Do you have trouble getting transportation to medical appointments?: Yes Do you have trouble paying your heating and electricity bill?: I choose not to answer this question Do you have trouble taking care of your child, family member or friend?: I choose not to answer this question Do you have trouble with day-to-day activities such as bathing, preparing meals, shopping, managing finances, etc.?: I choose not to answer this question Are you currently unemployed and looking for a job?: Yes Are you interested in more education?: I choose not to answer this question Currently or been in a relationship where the following occur: I choose not to answer THRIVE Score: 1 ILEANA-7 AMB Questionnaire ILEANA-7 Date ILEANA - 7 assessed: 12/23/24 Source: Developed by Drs. Yordan Salguero, Layla Haskins, Jose Luis Kapadia and colleagues, with an educational amara from [employer]. Physical exam (Primary Care) Vital Signs: Last Vital Signs Temp 97.9 F 03/13/25 14:05 Pulse 78 03/13/25 14:05 Resp 14 03/13/25 14:05 BP 114/73 03/13/25 14:05 Pulse Ox 97 03/13/25 14:05 Oxygen Delivery Method Room Air 03/13/25 14:05 BMI result Body Mass Index 34.9 Tobacco/Smoking Status: Tobacco use Status Tobacco use date assessed 01/28/25 03/13/25 14:00 Patient Tobacco Use Status Never used Tobacco 03/13/25 14:00 e-Cigarette/Vaping Use Never Used 03/13/25 14:00 Thrive Assessment: Date of Thrive Assessment Date Thrive assessed 12/17/24 03/13/25 14:00 Currently or been in a relationship where the following occur: I choose not to answer Coding Level of Care Code Est Pt Level 3 (21912) Complex EM visit Add On G2211 Diagnoses Acute otitis externa of left ear, unspecified type H60.502 Otitis externa type: unspecified type Chronicity: acute Laterality: left Subjective memory complaints R41.89 Assessment & Plan Assessment & Plan (1) Otitis externa: Code(s): H60.90 - Unspecified otitis externa, unspecified ear Qualifiers: Otitis externa type: unspecified type Chronicity: acute Laterality: left Qualified Code(s): H60.502 - Unspecified acute noninfective otitis externa, left ear (2) Subjective memory complaints: Code(s): R41.89 - Other symptoms and signs involving cognitive functions and awareness Category: Medical Plan . Orders: Referrals Neurology Referral R41.89 - Other symptoms and signs involving cognitive functions and awareness Medications: New ciprofloxacin-hydrocortisone 0.2-1 % 3 drps otic (ears) BID 10 mL 0RF 7 days ibuprofen 800 mg PO Q8H PRN 21 tabs 2RF pain Discontinued ibuprofen Discontinued Reason: Doctor's Order 600 mg PO Q8H 7 days PRN 21 tabs 3RF pain
[2025-03-13 14:05] VITALS: BP 114/73; PULSE 78; RESP 14; TEMP 36.6; O2SAT 97; BMI 34.9
== END 2025-03-13 15:49 | disposition home or self-care (01) ==
LOC: HO.HMCFM 13:52
PROVIDERS: Visit Provider Nurse Practitioner Family
DX: H60.502 Unspecified acute noninfective otitis externa, left ear (principal); R41.89 Other symptoms and signs involving cognitive functions and awareness

== ENCOUNTER → 2025-03-13 13:51 | Outpatient (BNVA) | payer OTHER, SELFPAY | PROVIDERS: Visit Provider Nurse Practitioner Family | DX: H92.03 Otalgia, bilateral (principal); H60.502 Unspecified acute noninfective otitis externa, left ear; R41.89 Other symptoms and signs involving cognitive functions and awareness | CPT/HCPCS: 99212 ==

== ENCOUNTER → 2025-03-30 08:00 | Outpatient (BNV) | payer OTHER, SELFPAY | PROVIDERS: Visit Provider Radiology Body Imaging | DX: E28.39 Other primary ovarian failure (principal) | CPT/HCPCS: 77080 ==

== ENCOUNTER 2025-03-30 08:04 | Outpatient (REF) | payer OTHER, SELFPAY ==
--- NOTE | ~2025-03-30 | MM_ITS ---
EXAMINATION: MM SCREENING DIGITAL BREAST TOMOSYNTHESIS, BILATERAL CLINICAL INFORMATION: Screening. Asymptomatic. COMPARISON: Mammography: Baseline. TECHNIQUE: Digital breast mammography with tomosynthesis is performed in both the craniocaudal and mediolateral oblique views along with computer-aided detection (CAD). FINDINGS: There are scattered areas of fibroglandular density. There are no significant masses, abnormal calcifications, or other abnormalities. MM/MM tomosynthesis screening BI IMPRESSION: No mammographic evidence of malignancy. ASSESSMENT: BI-RADS Category 1: Negative RECOMMENDATION: Routine annual mammography screening. 1 year F/U This examination should not preclude the clinical evaluation of a suspicious palpable abnormality. This patient's information was entered into a reminder system with a target due date for their next mammogram. Electronically signed by: Cony Moreno DO 04/03/2025 09:13 AM [facility]
--- NOTE | ~2025-03-30 | MM_ITS ---
STUDY: DUAL ENERGY X-RAY ABSORPTIOMETRY / DXA REASON FOR EXAM: Female, 54 years old Z13.820 - Encounter for screening for osteoporosis TECHNIQUE: Bone Mineral Density (BMD) measurements of the lumbar spine and left hip were obtained using [employer] COMPARISON: None FINDINGS: L1-L4 BMD: 1.319 g/cm2 L1-L4 T score: 1.2. This corresponds to Normal bone density. Left femoral neck BMD: 1.193 g/cm2 Left femoral neck T score: 1.1. This corresponds to Normal bone density. Left total hip BMD: 1.386 g/cm2 Left total hip T score: 3.0. This corresponds to Normal bone density. FRAX score: 10 year risk of major osteoporotic fracture 2.3%, 10 year risk of hip fracture 0.0% MM/XR DEXA axial skeleton IMPRESSION: Normal bone density Reference Information: The T-score is the number of standard deviations above or below the standard which is normal for young adults at their peak bone mineral density. The World Health Organization (WHO) interprets the T-scores as follows: At or above -1 SD Normal bone density Between -1 and -2.5 SD Osteopenia At or below -2.5 SD Osteoporosis Electronically signed by: Carroll eDlcid MD 03/30/2025 12:31 PM [facility]
== END 2025-03-30 08:05 | disposition home or self-care (01) ==
LOC: HO.MAMMO 08:04
PROVIDERS: Visit Provider Nurse Practitioner Family
DX: Z12.31 Encounter for screening mammogram for malignant neoplasm of breast (principal); Z13.820 Encounter for screening for osteoporosis; Z78.0 Asymptomatic menopausal state
CPT/HCPCS: 77063; 77067; 77080